=== PATIENT | male | born 1990 | race Caucasian/White ===

== ENCOUNTER 2024-10-30 08:23 | Outpatient (AMB) | payer OTHER, SELFPAY ==
--- NOTE | 2024-10-30 09:05 | AM.OFFWIN_ITS ---
Intake Vital Signs 10/30/24 09:09 Weight 157 lb BP 120/70 Blood Pressure Location Lt brachial Position Sitting Pulse 66 Pulse Source Pulse Oximeter Temp 97.8 F Temp Source Oral Pulse Oximetry (%) 95 Oxygen Delivery Method Room Air Intake Visit Reasons: [employer] ? strep throat Intake Note: Patient here for sore throat that started yesterday, he mentioned his is being treated for strep and he is having same symotoms. Patient Tobacco Use Status: Never used Tobacco Allergies phenytoin [From Dilantin] Adverse Reaction (Severe, Verified 10/30/24 09:10) Anaphylaxis zolmitriptan [From Zomig] Adverse Reaction (Verified 10/30/24 09:10) Anaphylaxis Do you need a note to return to daycare/school/sports/work: No HPI HPI Comments History of Present Illness Details 34 y/o male patient who presents to the walk in clinic with c/o Strep throat since yesterday. home with Positive Strep. PFSH Social History Patient Tobacco Use Status: Never used Tobacco Review of Systems Const All systems reviewed & are unremarkable except as noted in HPI and below Physical Exam Vital Signs: Last Vital Signs Temp 97.8 F 10/30/24 09:09 Pulse 66 10/30/24 09:09 BP 120/70 10/30/24 09:09 Pulse Ox 95 10/30/24 09:09 Oxygen Delivery Method Room Air 10/30/24 09:09 Const General: cooperative, comfortable and no acute distress Orientation/consciousness: patient oriented x3 HEENT Head: Yes normocephalic Ears: external ears normal and TM's normal bilaterally General nose exam: Normal nasal mucous membranes and turbinates present Face and sinus: Yes sinuses nontender Mouth: moist mucous membranes Throat: Yes tonsils normal and Yes uvula midline Resp Effort & Inspection: normal respiratory effort and able to speak in complete sentences Auscultation: clear to auscultation bilaterally Cardio Heart sounds: S1 normal heart sound present and S2 normal heart sound present Neuro General: patient oriented x3 Results AMB Rapid Strep AMB Rapid Strep Negative Last Edit by MICHAEL Wooten on 10/30/24 09:19 Results Reviewed Results Reviewed: Laboratory Last Values Strep Scn [facility] Clinic Negative 10/30/24 09:18 Assessment & Plan Assessment & Plan (1) Acute respiratory disease: Code(s): J06.9 - Acute upper respiratory infection, unspecified Plan: Ordered SARs Rapid Strep Negative Acetaminophen for pain relief OTC remedies Orders: Orders SARS-CoV2/FLU/RSV Today J06.9 - Acute upper respiratory infection, unspecified AMB Rapid Strep Screen Today Z13.9 - Encounter for screening, unspecified Coding Level of Care Code Est Pt Level 3 (06384) Diagnoses Acute respiratory disease J06.9 Time Spent (min) 15
[2024-10-30 09:09] VITALS: BP 120/70; PULSE 66; TEMP 36.6; O2SAT 95
== END 2024-10-30 09:50 | disposition home or self-care (01) ==
PROVIDERS: Visit Provider Nurse Practitioner Family
DX: Z13.9 Encounter for screening, unspecified (principal); J06.9 Acute upper respiratory infection, unspecified

== ENCOUNTER 2024-10-30 08:23 | Outpatient (REF) | payer OTHER, SELFPAY ==
[2024-10-30 14:54] LABS: Influenza A PCR NEGATIVE (Negative); Influenza B PCR NEGATIVE (Negative); Resp Syncy Virus RNA Qual PCR NEGATIVE (Negative); SARS COV2 PCR INHOUSE NEGATIVE (Negative)
== END 2024-10-30 08:24 | disposition home or self-care (01) ==
LOC: HO.LNP 08:23
PROVIDERS: PCP Nurse Practitioner Family; Visit Provider Nurse Practitioner Family
DX: J06.9 Acute upper respiratory infection, unspecified (principal); Z13.9 Encounter for screening, unspecified
CPT/HCPCS: 0241U; 87880